=== PATIENT | female | born 1960 | race Caucasian/White ===

== ENCOUNTER 2022-08-31 11:29 | Inpatient (IN) ==
--- NOTE | 2022-07-05 10:35 | PAT Medication Instructions ---
Medication Instructions Date of Service July 05, 2022 Home Medications buspirone 7.5 mg tablet 7.5 mg PO BID diltiazem HCl 120 mg capsule,24 hr,extended release 120 mg PO QAM metformin 500 mg tablet 1,000 mg PO BID metoprolol succinate 50 mg tablet,extended release 24 hr 50 mg PO HS omega 5-ife-jjo-fish oil 1,000 mg (120 mg-180 mg) capsule (Fish Oil) 2 cap PO HS pantoprazole 40 mg tablet,delayed release 40 mg PO QAM paroxetine HCl 40 mg tablet 40 mg PO HS ropinirole 1 mg tablet 1 mg PO HS rosuvastatin 40 mg tablet 40 mg PO HS STOP taking 2 weeks before surgery omega 0-jxl-oxk-fish oil 1,000 mg (120 mg-180 mg) capsule (Fish Oil) 2 cap PO HS DO NOT take the morning of surgery metformin 500 mg tablet 1,000 mg PO BID Take morning of surgery With a small sip of water, OTHERWISE NOTHING TO EAT OR DRINK AFTER MIDNIGHT: buspirone 7.5 mg tablet 7.5 mg PO BID diltiazem HCl 120 mg capsule,24 hr,extended release 120 mg PO QAM pantoprazole 40 mg tablet,delayed release 40 mg PO QAM Take evening before surgery buspirone 7.5 mg tablet 7.5 mg PO BID metformin 500 mg tablet 1,000 mg PO BID metoprolol succinate 50 mg tablet,extended release 24 hr 50 mg PO HS paroxetine HCl 40 mg tablet 40 mg PO HS ropinirole 1 mg tablet 1 mg PO HS rosuvastatin 40 mg tablet 40 mg PO HS Other Notes If you have any questions please call us at [phone] or [phone] or [phone] or [phone]
--- NOTE | 2022-08-17 13:10 | Anesthesiology Consultation ---
Date of Service August 17, 2022 Assessment & Plan (1) Encounter for pre-operative examination: Plan - check BSG am DOS. - cardiology 01/05/22: will attempt to obtain most recent office note, current scanned document of that date is visit summary. Chart Review Chart Review: Pending: Refer to Additional Notes / Consult section and Patient seen in Pre Admission Testing Teaching & Discussion Pre-Anesthesia Teaching/Discussion Notes: Instructed NPO after midnight before surgery, except medications with 15 cc of water. Medication instructions provided according to the PAT guidelines. History Surgery Operation Date: 07/22/22 12:25 Proposed Procedures p L3-L4 Decomrpession and Fusion, L4-L5 Hardware Removal, Spinal Cord Monitoring - Wero Hull DO Operation Date: 08/31/22 12:25 Proposed Procedures p L3-L4 Decompression and Fusion, L4-L5 Hardware Removal, Spinal Cord Monitoring - Wero Hull DO Height/Weight Height: 5 ft 9 in Weight: 93.7 kg Allergies Allergy/AdvReac Type Severity Reaction Status Date / Time empagliflozin AdvReac Intermediate Gastrointestinal Verified 08/13/22 12:37 [From Jardiance] Upset Medications Home Medications Medication Instructions Recorded Confirmed Last Taken buspirone 7.5 mg tablet 7.5 mg PO BID 07/05/22 08/13/22 Unknown diltiazem HCl 120 mg capsule,24 120 mg PO QAM 07/05/22 08/13/22 Unknown hr,extended release metformin 500 mg tablet 1,000 mg PO BID 07/05/22 08/13/22 Unknown metoprolol succinate 50 mg 50 mg PO HS 07/05/22 08/13/22 Unknown tablet,extended release 24 hr omega 3-uzv-avn-fish oil 1,000 mg 2 cap PO HS 07/05/22 08/13/22 Unknown (120 mg-180 mg) capsule (Fish Oil) pantoprazole 40 mg tablet,delayed 40 mg PO QAM 07/05/22 08/13/22 Unknown release paroxetine HCl 40 mg tablet 40 mg PO HS 07/05/22 08/13/22 Unknown ropinirole 1 mg tablet 1 mg PO HS 07/05/22 08/13/22 Unknown rosuvastatin 40 mg tablet 40 mg PO HS 07/05/22 08/13/22 Unknown Past Medical History Medical History (Updated 08/17/22 @ 13:15 by Roxana Aguilar PA-C) Anxiety Depression Diabetes mellitus, type 2 NIDDM Fusion of spine lumbar GERD (gastroesophageal reflux disease) controlled, stable per pt History of COVID-19 Feb 25, 2022 > not hospitalized > mild Hyperlipidemia Hypertension controlled, stable per pt IBS (irritable bowel syndrome) Lumbar stenosis with neurogenic claudication Mild mitral regurgitation Mild tricuspid regurgitation Nausea and vomiting after administration of anesthetic agent has needed scop patch in past, states with recent procedures has received IV pre-dosing and has not had any recent issues Sleep apnea no device Patient denies h/o stroke, seizures, heart attack, heart failure, blood clots or blood transfusions. Exercise / Class Metabolic Activity III < 4 Walking/Shop/Light housework (denies chest discomfort or shortness of breath with usual activities) Past Family History Family History Sister Diabetes Brother Diabetes Past Surgical History Surgical History History of cardiac cath 03/04/17: normal epicardial coronary arteries History of carpal tunnel release left History of cholecystectomy History of colonoscopy History of esophagogastroduodenoscopy (EGD) History of partial hysterectomy History of tooth extraction Hx of inguinal hernia repair bilat Past Anesthesia History No Hx of Anesthesia Complications and No Family Hx of Anesthesia Complications History of PONV History of PONV (see above) and Hx of Motion Sickness Social History Smoking Status: Never smoker Do You Dip or Chew Tobacco: No Hx Alcohol Use: No Hx Substance Use: No substance use type: does not use Review of Systems Patient denies chest pain, shortness of breath, dyspnea on exertion, fever, chills, cough, wheezing, or palpitations. Physical Exam Vital Signs Vitals BP 117/76 P 81 TEMP 98.5 SP02 97% on RA RESP 17 Physical Full cervical extension range of motion without pain TMD 3.5 finger breadths Mallampati Score 3 Dentition: upper dentures, lower chipped teeth; denies loose teeth, implants or bridges Lungs: normal respiratory effort. Clear throughout to auscultation, no adventitious breath sounds Cardiac: regular rate and rhythm, no murmurs noted Carotid arteries: negative bruit bilat Lab Results Anesthesia Preop Results Results Anesthesia Widget: WBC 4.47 K/ul (4.8-10.8) L 08/17/22 Hgb 11.4 g/dl (12.0-16.0) L 08/17/22 Hct 35.5 % (34.1-44.9) 08/17/22 Plt 119 K/uL (130-400) L 08/17/22 Na 139 mmol/L (136-145) 08/17/22 K 4.1 mmol/L (3.5-5.1) 08/17/22 Cl 106 mmol/L (98-107) 08/17/22 CO2 27 mmol/L (21-32) 08/17/22 BUN 17 mg/dl (6-23) 08/17/22 Creat 0.93 mg/dl (0.6-1.2) 08/17/22 Glucose Level 160 mg/dl (70-99(Fasting)) H 08/17/22 PT 11.2 Seconds (9.0-12.0) 08/17/22 PTT 24.2 Seconds (21.0-31.0) 08/17/22 INR 1.1 (0.9-1.1) 08/17/22 HA1c 6.8 % (4.5-5.6) H 08/17/22 Urine Color Yellow 08/17/22 Urine Appearance Clear (Clear) 08/17/22 Urine pH 6.0 (4.5-7.5) 08/17/22 Urine Specific [place] 1.023 (1.000-1.030) 08/17/22 Urine Protein 2+ (Negative) H 08/17/22 Urine Glucose (UA) Negative (Negative) 08/17/22 Urine Ketones Negative (Negative) 08/17/22 Urine Blood Trace (Negative) H 08/17/22 Urine Nitrite Negative (Negative) 08/17/22 Urine Bilirubin Negative (Negative) 08/17/22 Urine Urobilinogen Negative (Negative) 08/17/22 Urine Leukocyte Esterase Negative (Negative) 08/17/22 Urine WBC (Auto) 1-5 /hpf (0-5) 08/17/22 Urine RBC (Auto) 0-4 /hpf (0-4) 08/17/22 Urine Hyaline Casts (Auto) 1-5 /lpf (0-5) 08/17/22 Urine Epithelial Cells (Auto) >30 /lpf (0-5) H 08/17/22 Urine Bacteria (Auto) Negative (Negative) 08/17/22 Blood Type O Positive 08/17/22 Antibody Screen NEGATIVE 08/17/22 Testing Electrocardiogram Date: 08/17/22 NSR, rate 78 bpm Chest X-Ray Date: 08/17/22 Cardiomediastinal and hilar silhouettes are within normal limits. No pneumothorax, pleural effusion, airspace consolidation or overt pulmonary edema. Mild linear subsegmental atelectasis versus scarring of the inferior segment lingula. Cholecystectomy. IMPRESSION: No acute process. Echocardiogram Date: 11/27/20 EF 65% Normal LV size and systolic function with no regional wall motion abnormalities Mild cLVH Mild mitral regurgitation Mild tricuspid regurgitation Cardiac Catheterization Date: 03/04/17 Left main: no angiographically evident disease LAD: less than 20% stenosis ostium first diagonal Cx: no angiographically evident disease RCA: no angiographically evident disease COVID-19 Risk Screen Screening Information COVID-19 Screen Date: 08/17/22 Exposure 21 Days Family/Household +COVID Last 21 Days: No Exposure 10 Days Any COVID Exposure Last 10 Days: No Symptoms Last 10 Days Experienced COVID Sx Last 10 Days: No + COVID 0-90 Days COVID + in Last 0-90 Days: No
[~2022-08-31 11:29] MED LIST: ACETAMINOPHEN 500 MG TAB PO SCH; CeleBREX 200 MG CAP PO SCH; GABAPENTIN 600 MG DOSE PO SCH; LR 15ML/HR IV SCH; ceFAZolin 2000MG 2,000 MG/15 ML SYR IV SCH
[2022-08-31] MEDS ORDERED: ROCURONIUM BROMIDE 10 MG/ML 5 ML VIAL IV ONE ×2 (11:55→16:21)
[2022-08-31 13:09] LABS: Fibrinogen 303 mg/dl (184-400)
[2022-08-31] MEDS ORDERED: HYDROmorphone INJ 2 MG/ML SYR/VIAL IV PRN (13:14)
[2022-08-31] MEDS ORDERED: ATROPINE SULFATE 0.1 MG/ML 10ML SYR IV PRN (13:14)
[2022-08-31] MEDS ORDERED: ePHEDrine sulfate 50 MG/ML AMP IV PRN (13:14)
[2022-08-31] MEDS ORDERED: ONDANSETRON INJ 2 MG/ML 2 ML VIAL IV PRN ×2 (13:14→17:46)
--- NOTE | 2022-08-31 13:50 | History & Physical Bridge Note ---
Date of Service August 31, 2022 History & Physical Bridge Note I have examined the patient, reviewed the History & Physical and in the interval since the performance of the History & Physical I have noted the following changes of clinical significance: no changes noted
--- NOTE | 2022-08-31 13:51 | History & Physical Report ---
Date of Service August 31, 2022 Assessment & Plan (1) Lumbar stenosis with neurogenic claudication: Plan: L3-L4 decompression and fusion, L4-L5 hardware removal History of Present Illness Chief Complaint: Back and leg pain Primary Care Provider: Lelia Hinds PA-C This is a 62-year-old female presents with chronic persistent back and leg pain after failing course of nonoperative care she is here for surgical invention. Allergies Allergy/AdvReac Type Severity Reaction Status Date / Time empagliflozin AdvReac Intermediate Gastrointestinal Verified 08/31/22 11:55 [From Jardiance] Upset Home Medications Medication Instructions Recorded Confirmed Type buspirone 7.5 mg tablet 7.5 mg PO BID 07/05/22 08/31/22 History diltiazem HCl 120 mg capsule,24 120 mg PO QAM 07/05/22 08/31/22 History hr,extended release metformin 500 mg tablet 1,000 mg PO BID 07/05/22 08/31/22 History metoprolol succinate 50 mg 50 mg PO HS 07/05/22 08/31/22 History tablet,extended release 24 hr omega 8-jwm-prl-fish oil 1,000 mg 2 cap PO HS 07/05/22 08/31/22 History (120 mg-180 mg) capsule (Fish Oil) pantoprazole 40 mg tablet,delayed 40 mg PO QAM 07/05/22 08/31/22 History release paroxetine HCl 40 mg tablet (Paxil) 40 mg PO HS 07/05/22 08/31/22 History ropinirole 1 mg tablet 1 mg PO HS 07/05/22 08/31/22 History rosuvastatin 40 mg tablet 40 mg PO HS 07/05/22 08/31/22 History dulaglutide 1.5 mg/0.5 mL 1.5 mg subcut WK 08/31/22 08/31/22 History subcutaneous pen injector (Trulicity) Past Med/Surg History Medical History Anxiety Depression Diabetes mellitus, type 2 NIDDM Fusion of spine lumbar GERD (gastroesophageal reflux disease) controlled, stable per pt History of COVID-19 Feb 25, 2022 > not hospitalized > mild Hyperlipidemia Hypertension controlled, stable per pt IBS (irritable bowel syndrome) Lumbar stenosis with neurogenic claudication Mild mitral regurgitation Mild tricuspid regurgitation Nausea and vomiting after administration of anesthetic agent has needed scop patch in past, states with recent procedures has received IV pre-dosing and has not had any recent issues Sleep apnea no device Stage 3 hepatic fibrosis pt sees Dr. London with [facility] Surgical History History of cardiac cath 03/04/17: normal epicardial coronary arteries History of carpal tunnel release left History of cholecystectomy History of colonoscopy History of esophagogastroduodenoscopy (EGD) History of partial hysterectomy History of tooth extraction Hx of inguinal hernia repair bilat Family History Sister Diabetes Brother Diabetes Social History Smoking Status: Never smoker Second Hand Exposure: No; Do You Dip or Chew Tobacco: No; Tobacco Cessation Education Requested by Patient: No Hx Alcohol Use: No Hx Substance Use: No Preferred Language: Syriac Underwriting Clerks Supervisor Required: No Beliefs That Will Affect Care: None Current Living Situation: Spouse Other Information That Helps Us Care for You: No Feels Safe at Home: Yes Safety Concerns: Feels Safe At This Time Assistive Devices: Denture - Upper and Glasses Physical Exam Physical Exam: Patient is alert and oriented Heart regular rhythm Lungs clear Results & Data Results & Data ([facility]) Vital Signs (Past 12 Hours) Vital Signs Temp Pulse Resp BP Pulse Ox O2 Del Method 08/31/22 12:00 36.9 C 77 19 117/65 97 Room Air
[2022-08-31] MEDS ORDERED: ceFAZolin 330 MG/ML 1 GM VIAL ONE (13:57)
[2022-08-31] MEDS ORDERED: BUPIVACAINE/EPINEPHRINE 0.5% MPF 1:200,000 30 ML VIAL ONE (13:58)
[2022-08-31] MEDS ORDERED: fentaNYL citrate 100 MCG/2 ML VIAL ONE (14:09)
[2022-08-31] MEDS ORDERED: MIDAZOLAM HCL 1 MG/ML 2ML VIAL ONE (14:09)
[2022-08-31] MEDS ORDERED: FLOSEAL HEMOSTATIC MATRIX 10ML TOP ONE (15:32)
--- NOTE | 2022-08-31 16:19 | Operative Report ---
Post Operative Report Pre & Post Diagnosis Operation Date: 07/22/22 12:25 <No data on this case meets the specified criteria> Operation Date: 08/31/22 13:05 Pre-Op Diagnosis: Lumbar Stenosis with Neurogenic Claudication Post-Op Diagnosis: Lumbar Stenosis with Neurogenic Claudication I identified the patient and participated in the time-out.: Yes Procedure Operation Date: 07/22/22 12:25 <No data on this case meets the specified criteria> Operation Date: 08/31/22 13:05 Actual Procedures #1 removal of posterior instrumentation L4-L5. #2 exploration of fusion L4-5 per #3 lumbar decompression bilateral medial facetectomies and foraminotomies L3-L4. #4 posterior spinal fusion L3-L4. #5 placement posterior instrumentation L3-L4 L4-5. #6 interbody fusion L3-L4. #7 placement of Spira 13 x 26 mm cage at L3-L4. #8 placement locally harvested morselized autograft in the posterior gutters. #9 placement of I factor combined V toss interbody space and posterior lateral gutters. Surgeon Wero Hull, DO Public Speaking Coach Janee Zepeda Estimated Blood Loss 350 Findings Consistent with Post-Op Diagnosis Specimens None Indications This is a 8-year-old female known to me the presents with above-mentioned diagnosis after failing course of nonoperative care is here for surgical inve ntion. Description of Procedure Patient was met with identified informed consent obtained. Patient was then taken to the operative suite underwent a patient placed in a prone position on the Dewey table top Jg frame. All bony prominences well-padded eyes inspected to ensure no external pressure placed upon the. This point the lumbar spine was prepped and draped in normal sterile fashion. Sharp dissection with the assistance of Bovie cautery was formed down to and exposing the lamina and transverse processes of L3 and instrumentation at L4-L5 bilaterally. Then proceeded move the hardware bilaterally explore the fusion mass noting it to be mature and intact. Then performed a complete laminectomy of L3 including bilateral medial facetectomies and foraminotomies addressing severe spinal stenosis. Pedicle screws were then placed at L3-L4-L5 bilaterally with assistance of fluoroscopy and the properly sized hay placed. By way of t ransforaminal approach complete discectomy of L3-L4 was performed endplates curetted to subcortical bleeding bone and a 13 x 26 mm spiral cage with I factor tapped in position. The rods were then locked in final position bilaterally. The transverse processes of L3-L4 burred to subcortical bleeding bone. I factor bone of the test and locally harvested morselized autograft was placed in the posterior lateral gutters. 15 round CATHERINE drain inserted. The incision was then closed with 1 Vicryl the fascia 2-0 Vicryl subcutaneously and 4 Monocryl for final skin closure. Steri-Strip sterile dressings placed. Patient waken taken to PACU in stable condition. Please note spinal cord monitoring was utilized at the procedure no changes noted. Lastly Janee Zepeda was present on the entire surgery and while the patient positioning complex portions of the surgery and final skin closure. I attest to the content of the Intraoperative Record and any orders documented therein. Any exceptions are noted below.
[2022-08-31] MEDS ORDERED: LIDOCAINE 2% MPF LOCAL 5 ML VIAL INFIL ONE (16:21)
[2022-08-31] MEDS ORDERED: NEOSTIGMINE METHYLSULFATE 1 MG/ML 10ML VIAL ONE (16:21)
[2022-08-31] MEDS ORDERED: DEXAMETHASONE SOD INJ 4 MG/ML VIAL ONE (16:21)
[2022-08-31] MEDS ORDERED: ONDANSETRON INJ 2 MG/ML 2 ML VIAL ONE (16:21)
[2022-08-31] MEDS ORDERED: GLYCOPYRROLATE 0.2 MG/ML VIAL ONE (16:21)
[2022-08-31] MEDS ORDERED: PROPOFOL IV EMULSION 10 MG/ML 20 ML VIAL IV ONE ×3 (16:21)
[2022-08-31] MEDS: fentaNYL citrate 100 MCG/2 ML VIAL IV PRN ×2 (16:56→17:01)
--- NOTE | 2022-08-31 17:00 | Fluoroscopy Report ---
FL lumbar spine 2-3V CLINICAL HISTORY: L3-4 DFI/L4-5 HR COMPARISON STUDY: Lumbar spine radiographs January 21, 2022 and lumbar spine MRI December 14, 2021. FLUOROSCOPY TIME: 11 seconds. EXPOSURE DOSE: 9.24 mGy FLUOROSCOPIC IMAGES: 2 FINDINGS: Previous L4-L5 and L5-S1 discectomies are noted. Previous hardware was removed. Interval L3 -L4 discectomy with interbody spacer placement is noted. There is a posterior decompression with bila teral pedicle screw fusion from L3 through L5. IMPRESSION: Interval L3-L4 discectomy and L3-L5 bilateral pedicle screw fusion. ACT 112: Negative or not required by law. Electronically signed by: Rigo Thomas M.D. 08/31/2022 4:59 PM
--- NOTE | 2022-08-31 17:11 | Anesthesiology Progress Note ---
Date of Service August 31, 2022 Anesthesia Post Procedure Vital Signs Vital Signs: Temp Pulse Resp BP Pulse Ox O2 Del Method O2 Flow Rate 08/31/22 17:05 75 13 109/54 L 93 Nasal Cannula 3 08/31/22 16:55 82 17 111/57 L 95 Nasal Cannula 3 08/31/22 16:45 83 19 116/56 L 95 Nasal Cannula 3 08/31/22 16:36 36.5 C 87 12 115/56 L 95 Nasal Cannula 3 08/31/22 12:00 36.9 C 77 19 117/65 97 Room Air Pain Intensity Lower Back: Pain Intensity: 6 Transfer of Care Handoff Completed per policy Notes Mental Status: alert / awake / arousable Patient Amnestic to Procedure: Yes Nausea / Vomiting: adequately controlled Pain: adequately controlled Airway Patency, RR, SpO2: stable & adequate BP & HR: stable & adequate Hydration State: stable & adequate Anesthetic Complications: no major complications apparent
[2022-08-31] MEDS ORDERED: DO NOT ADMINISTER PNEUMOCOCCAL VACCINE PRN (17:46)
[2022-08-31] MEDS ORDERED: PHARMACY GLYCEMIC MGMT CONSULT PRN (17:46)
[2022-08-31] MEDS ORDERED: SOD PHOSPHATE/SOD BIPHOSPHATE ENEMA 132 ML BTL PR PRN (17:46)
[2022-08-31] MEDS ORDERED: traMADol HCL 50 MG TABLET PO PRN (17:46)
[2022-08-31] MEDS ORDERED: ONDANSETRON 4 MG OD TAB PO PRN (17:46)
[2022-08-31] MEDS ORDERED: PROMETHAZINE HCL 12.5 MG in SODIUM CHLORIDE 0.9% 50 ML IV PRN (17:46)
[2022-08-31] MEDS ORDERED: METOCLOPRAMIDE HCL INJ 5 MG/ML 2 ML VIAL IV PRN (17:46)
[2022-08-31] MEDS ORDERED: bisacodyL 10 MG SUPP PR PRN (17:46)
[2022-08-31] MEDS ORDERED: ALUMINUM/MAGNESIUM SUSP 30 ML UDC PO PRN (17:46)
[2022-08-31] MEDS ORDERED: ACETAMINOPHEN 1,000 MG/100 ML VIAL IV PRN (17:46)
[2022-08-31] MEDS ORDERED: FAMOTIDINE 20 MG TAB PO PRN (17:46)
[2022-08-31] MEDS ORDERED: MAGNESIUM HYDROXIDE SUSP 30 ML UDC PO PRN (17:46)
[2022-08-31] MEDS ORDERED: LORazepam 2 MG/1 ML VIAL IV PRN (17:46)
[2022-08-31] MEDS ORDERED: HYDROmorphone INJ 0.5 MG/0.5 ML SYR IV PRN (17:46)
[2022-08-31] MEDS ORDERED: HYDROmorphone INJ 1 MG/ML SYRINGE IV PRN (17:46)
[2022-08-31] MEDS ORDERED: diphenhydrAMINE Capsule 25 MG CAP PO PRN (17:46)
[2022-08-31] MEDS ORDERED: DO NOT ADMINISTER FLU VACCINE PRN (17:46)
[2022-08-31] MEDS ORDERED: hydrOXYzine HCl 25 MG TAB PO PRN (17:46)
[2022-08-31] MEDS ORDERED: ACETAMINOPHEN 500 MG TAB PO PRN (17:46)
[2022-08-31] MEDS ORDERED: NALOXONE HCL 0.4 MG/1 ML VIAL/CARP IV PRN (17:46)
[2022-08-31] MEDS ORDERED: LORazepam 0.5 MG TAB PO PRN (17:46)
[2022-08-31] MEDS ORDERED: HYDROmorphone INJ 1 MG/ML SYRINGE ONE (17:59)
[2022-08-31] MEDS ORDERED: GLUCOSE 10 TAB/TUBE PO PRN (19:45)
[2022-08-31] MEDS ORDERED: GLUCOSE 40% GEL 15 GM TUBE PO PRN (19:45)
[2022-08-31] MEDS ORDERED: GLUCAGON FOR INJ 1 MG VIAL IM PRN (19:45)
[2022-08-31] MEDS ORDERED: CARBOHYDRATES FOR HYPOGLYCEMIA PO PRN (19:45)
[2022-08-31] MEDS ORDERED: DEXTROSE 50% 50 ML SYRINGE IV PRN (19:45)
[2022-08-31] MEDS: oxyCODONE HCL IR 5 MG TAB (IMMEDIATE RELEASE) PO PRN (19:56)
[2022-08-31] MEDS: LACTATED RINGER'S 1,000 ML IV SCH (19:57)
[2022-08-31] MEDS ORDERED: LANTUS PER UNIT CHARGE SQ SCH (20:00)
[2022-08-31] MEDS: INSULIN ASPART PER UNIT SC SCH (20:52)
[2022-08-31] MEDS: rOPINIRole HCL 1 MG TABLET PO SCH (21:26)
[2022-08-31] MEDS: DOCUSATE SODIUM/SENNA 50/8.6MG TAB PO SCH (21:26)
[2022-08-31] MEDS: METOPROLOL SUCC 50MG EXT REL TAB PO SCH (21:26)
[2022-08-31] MEDS: busPIRone 7.5 MG TAB PO SCH (21:26)
[2022-08-31] MEDS: PARoxetine HCL 20 MG TAB PO SCH (21:27)
[2022-08-31] MEDS: ROSUVASTATIN CALCIUM 20 MG TAB PO SCH (21:27)
[2022-08-31] MEDS: ceFAZolin 2000MG 2,000 MG/15 ML SYR IV SCH (22:42)
[2022-09-01] MEDS: oxyCODONE HCL IR 5 MG TAB (IMMEDIATE RELEASE) PO PRN ×5 (02:38→19:16)
[2022-09-01] MEDS: LACTATED RINGER'S 1,000 ML IV SCH (03:18)
[2022-09-01] MEDS: POLYETHYLENE (MIRALAX) 17 GM PACK PO SCH ×4 (05:25→23:19)
[2022-09-01] MEDS: ceFAZolin 2000MG 2,000 MG/15 ML SYR IV SCH (05:51)
[2022-09-01 06:22] LABS: Basophils # (auto) 0.01 K/uL (0-0.2); Basophils % (auto) 0.1 %; Hemoglobin 9.9 g/dl (12.0-16.0); Immature Granulocytes # (auto) 0.04 K/uL (0.01-0.20); Immature Granulocytes % (auto) 0.6 %; Lymphocytes # (auto) 1.36 K/uL (1.2-3.4); Lymphocytes % (auto) 18.7 %; Mean Corpuscular Hemoglobin 28.1 pg (25.0-34.0); Mean Corpuscular Hgb Conc 31.9 g/dL (32.0-36.0); Mean Corpuscular Volume 88.1 fL (80.0-100.0); Mean Platelet Volume 9.9 fL (9.4-12.4); Monocytes # (auto) 0.55 K/uL (0.11-0.59); Monocytes % (auto) 7.6 %; Neutrophils # (auto) 5.31 K/uL (1.40-6.50); Platelet Count 135 K/uL (130-400); RDW Coefficient of Variation 14.9 % (11.5-14.5); RDW Standard Deviation 48.1 fL (36.4-46.3); Red Blood Count 3.52 M/uL (4.20-5.40); White Blood Count 7.27 K/ul (4.8-10.8)
[2022-09-01 06:36] LABS: BUN Creatinine Ratio 13.6 (10-20); Calcium 9.1 mg/dl (8.5-10.1); Creatinine Clr Calc Pharmacy 56.9 ml/min; Est GFR (African American) 54.1 ml/min; Est GFR (Non-African American) 46.7 ml/min; Potassium 4.2 mmol/L (3.5-5.1)
[2022-09-01] MEDS: dilTIAZem HCL 120 MG CAPCR PO SCH (07:46)
[2022-09-01] MEDS: PANTOprazole 40 MG TAB PO SCH (07:46)
[2022-09-01] MEDS: busPIRone 7.5 MG TAB PO SCH ×2 (07:47→21:02)
[2022-09-01] MEDS: dexAMETHasone 6 MG in SYRINGE 0 ML IV SCH (07:47)
--- NOTE | 2022-09-01 08:17 | Consultation Report ---
DATE OF CONSULTATION: 09/01/2022. CHIEF COMPLAINT: Status post back surgery. HISTORY OF PRESENT ILLNESS: This is a 62-year-old female with past medical history significant for diabetes, hypertriglyceridemia, triglycerides as high as 1200; Prinzmetal angina, status post cardiac catheterization, which was negative for coronary artery disease in 2017; history of palpitations, improved with AV chivo blockers; fatty infiltration of the liver, history of iron deficiency anemia, stage III fibrosis of the liver, untreated sleep apnea due to severe claustrophobia, status post back surgery, tolerated the procedure okay. She has some back pain. Denies any chest pain. No shortness of breath. No headache. No blurred visions. No runny nose. No nausea. No abdominal pain. Resting comfortably and hemodynamically stable. ALLERGIES: JARDIANCE. PAST MEDICAL HISTORY: As mentioned above. PAST SURGICAL HISTORY: Cholecystectomy, partial hysterectomy, and hernia repair. MEDICATIONS: The patient is on buspirone 7.5 mg p.o. b.i.d., diltiazem 120 mg p.o. a.m., Trulicity 1.5 mg subcutaneous weekly, metformin 1000 mg p.o. b.i.d., metoprolol succinate 50 mg p.o. at bedtime, omega fish oil 2 capsules p.o. at bedtime, Protonix 40 mg p.o. a.m., Paroxetine 40 mg p.o. at bedtime, ropinirole 1 mg p.o. at bedtime, and lovastatin 40 mg p.o. at bedtime. FAMILY HISTORY: Significant for heart disease. SOCIAL HISTORY: Denies any smoking or any alcohol use. REVIEW OF SYSTEMS: As per HPI. Rest of the review of systems is negative. PHYSICAL EXAMINATION: GENERAL: The patient is obese, not in acute distress. VITAL SIGNS: Temperature 36.9, pulse 84, respiratory rate 16, blood pressure 104/67, and oxygen saturation 94% on room air. HEENT: Extraocular muscles intact. Head is atraumatic. NECK: No JVD. No neck masses seen. CARDIOVASCULAR: S1 and S2 heard. Regular rate and rhythm. No murmur. No gallop. RESPIRATORY SYSTEM: Normal AP diameter. No accessory muscle use. No wheezing. No crackles. ABDOMEN: Soft, bowel sounds present, and nontender. No distention. CENTRAL NERVOUS SYSTEM: Alert and oriented. Nonfocal. EXTREMITIES: No edema. No erythema. MUSCULOSKELETAL: Status post back surgery. Dressings are dry and intact. ASSESSMENT AND PLAN: This is a 62-year-old female, status post back surgery. 1. Back surgery, management as per orthopedics. PT, OT, and disposition as per orthopedics. 2. Diabetes. Holding home medication of metformin and Trulicity and placed on insulin sliding scale. Follow the blood sugars. 3. History of tachycardia, on metoprolol and diltiazem. 4. History of hyperlipidemia, on statin. 5. Gastroesophageal reflux disease, on omeprazole. 6. Deep venous thrombosis prophylaxis and disposition as per orthopedics. Job ID: [id number] MTDD
[2022-09-01] MEDS: INSULIN ASPART PER UNIT SC SCH ×4 (08:46→21:03)
[2022-09-01] MEDS ORDERED: LANTUS PER UNIT CHARGE SQ STA (09:45)
--- NOTE | 2022-09-01 10:27 | Hospitalist Progress Note ---
Date of Service September 01, 2022 Assessment & Plan (1) Lumbar stenosis with neurogenic claudication: (2) Diabetes mellitus, type 2: (3) Hypertension: Plan: Lumbar stenosis with neurogenic claudication Actual Procedures #1 removal of posterior instrumentation L4-L5. #2 exploration of fusion L4-5 per #3 lumbar decompression bilateral medial facetectomies and foraminotomies L3-L4. #4 posterior spinal fusion L3-L4. #5 placement posterior instrumentation L3-L4 L4-5. #6 interbody fusion L3-L4. #7 placement of Spira 13 x 26 mm cage at L3-L4. #8 placement locally harvested morselized autograft in the posterior gutters. #9 placement of I factor combined V toss interbody space and posterior lateral gutters. POD # [address] Hull EBBenjamín 350ml tolerated procedure well pain/wound management per ortho activity and therapy as prescribed by ortho encourage incentive spirometry Acute blood loss anemia in setting of surgery likely dilutional component as well H&H 9.9 and 31.0 preop hemoglobin was 11.4 Continue to monitor, hemodynamically stable T2DM Hold metformin, Trulicity Lantus/NovoLog per protocol Glycemic pharmacy on board, appreciate their management A1C 6.8 ON 08/16/23 Expect some hyperglycemia secondary to steroid HTN continue metoprolol and diltizem with parameters BP on lower side this a.m. CHRISTIANO cr 1.25 this a.m. pre op 0.93 will continue IVF for additonal 1 L follow bmp in A.M Depression with anxiety Mood stable Continue BuSpar and Paxil HLD Continue statin DVT prophylaxis: SCDs Dispo: Per primary PCP: Lelia Hinds FULL CODE Pt was see and examined in collaboration with Dr. Toure, please see addendum This note does not reflect a billable service as consultation was done after 00:00 on 09/01/22 Admission and Anticipated Discharge Date Admission Date: August 31, 2022 Supervising Physician Co-Signing Physician Notes Attending Addendum: care coordinated with JASSON Verduzco please refer to her notes for full details, I agree with her notes patient seen and examined, records reviewed by myself as well on exam, patient seen resting in bed, comfortable denies back pain, no leg pain, weakness, numbness no chest pain, dyspnea, palpitations, dizziness no other symptoms ASSESSMENT AND PLAN agree with diagnoses and plan of care as per JASSON Alfred's notes Noble Haider MD Subjective Pt was seen and examined in room 317-1. Follow up lumbar surgery. Overall feels well. Tolerated breakfast. Sitting in bedside chair. Denies f/c/s, chest pain, sob, n/v/d. Gill cath in place to be removed. Review of Systems Review of Systems: All systems reviewed & are unremarkable except as noted in HPI & below Physical Exam Physical Exam: Gen: WD/WN, sitting in bedside chair, NAD, A&O x3 HEENT: Normocephalic, atraumatic, conjunctivae moist, sclerae anicteric, mucous membranes moist. Lung: Clear to Auscultation bilaterally, no wheezes/rales/rhonchi Heart: Regular rate, regular rhythm, no murmurs, rubs, or gallops Abdomen: Soft, NT, ND +BS x 4 Extremities: No edema, lumbar dressing CDI, aline drain with sersang drainage Skin: Warm, no rash, negative turgor. Results & Data Results & Data ([facility]) Vital Signs (Past 12 Hours) Vital Signs Temp Pulse Resp BP BP Pulse Ox O2 Del Method 09/01/22 08:00 Room Air 09/01/22 07:16 36.6 C 77 16 105/66 94 Room Air 09/01/22 03:53 36.9 C 84 16 104/67 94 Room Air 08/31/22 23:30 Room Air 08/31/22 23:37 36.4 C L 89 14 96/59 L 94 Room Air 08/31/22 22:46 36.4 C L 95 H 16 91/55 L 88/48 L 95 Nasal Cannula O2 Flow Rate 09/01/22 08:00 09/01/22 07:16 09/01/22 03:53 08/31/22 23:30 08/31/22 23:37 08/31/22 22:46 1 Laboratory Results Short CBC 09/01/22 Range/Units 05:53 WBC 7.27 (4.8-10.8) K/ul Hgb 9.9 L (12.0-16.0) g/dl Hct 31.0 L (37.0-47.0) % Plt Count 135 (130-400) K/uL BMP 09/01/22 05:53 Sodium 137 Potassium 4.2 Chloride 106 Carbon Dioxide 23 BUN 17 Creatinine 1.25 H Glucose 187 H Calcium 9.1
[2022-09-01] MEDS ORDERED: LACTATED RINGER'S 1,000 ML IV SCH (10:30)
--- NOTE | 2022-09-01 12:03 | Orthopedic Progress Note ---
Date of Service September 01, 2022 Assessment & Plan (1) Lumbar stenosis with neurogenic claudication: Plan: This time we will continue physical therapy monitor CATHERINE operatively discharge home next day or so. Admission and Anticipated Discharge Date Admission Date: August 31, 2022 Subjective Patient's back pain controlled leg pain markedly improved Physical Exam Physical Exam: Patient is in the chair at the bedside. She is comfortable. Is constricted testing. Results & Data ([facility]) Vital Signs (Past 12 Hours) Vital Signs Temp Pulse Resp BP BP Pulse Ox O2 Del Method 09/01/22 11:25 37.1 C 85 16 102/64 96 Room Air 09/01/22 08:00 Room Air 09/01/22 07:16 36.6 C 77 16 105/66 94 Room Air 09/01/22 03:53 36.9 C 84 16 104/67 94 Room Air
--- NOTE | 2022-09-01 13:16 | Pharmacy Report ---
Pharmacy Glycemic Short Note 2 - Date of Service September 01, 2022 - Glycemic Short BSG Results (Last 24 hours): 08/31/22 08/31/22 09/01/22 16:38 20:33 05:53 Glucose 187 H POC Glucose 144 H 186 H 09/01/22 09/01/22 08:07 12:02 Glucose POC Glucose 150 H 207 H OUTPATIENT ANTIDIABETIC REGIMEN: * Trulicity 1.5 mg weekly * Metformin 1000 mg PO BID ASSESSMENT: * 62 y/o F admitted for spinal surgery. Patient with history of Type 2 diabetes managed at home on Trulicity and Metformin. These are on hold for now. * Patient received Dexamethasone 8 mg IV x1 during surgery yesterday and Dex IV 6 mg daily is continued ongoing. * BSG trended up to 186 mg/dl last night. Lantus 15 units given last night based on wt and stress of 2. * Going forward, will order basal insulin in the AM to be given with the IV Dex. 10 units of basal Lantus given this morning. Will re-assess dose tomorrow. * Novolog was started last night based on wt and stress of 2. PLAN FOR INPATIENT GLYCEMIC CONTROL: * Hold outpatient oral diabetes medications * Basal insulin * Lantus 15 units SQ last night; 10 units SQ this AM. Re-assess tomorrow AM. * Bolus insulin * NovoLog per scale ACHS or Q6hrs while NPO * Goal Range: Low 110 mg/dL - High 140 mg/dL * Correction Factor: 25 mg/dL/unit * Nutritional / Prandial insulin per carb ratio of 1 unit per 8 grams CHO consumed
[2022-09-01] MEDS: METOPROLOL SUCC 50MG EXT REL TAB PO SCH (20:57)
[2022-09-01] MEDS: ROSUVASTATIN CALCIUM 20 MG TAB PO SCH (21:01)
[2022-09-01] MEDS: rOPINIRole HCL 1 MG TABLET PO SCH (21:02)
[2022-09-01] MEDS: PARoxetine HCL 20 MG TAB PO SCH (21:02)
[2022-09-01] MEDS: DOCUSATE SODIUM/SENNA 50/8.6MG TAB PO SCH (21:05)
[2022-09-02] MEDS: POLYETHYLENE (MIRALAX) 17 GM PACK PO SCH (03:14)
[2022-09-02] MEDS: oxyCODONE HCL IR 5 MG TAB (IMMEDIATE RELEASE) PO PRN ×3 (03:19→11:52)
[2022-09-02 06:33] LABS: Hematocrit (blood only) 28.3 % (37.0-47.0); Mean Corpuscular Hemoglobin 28.6 pg (25.0-34.0); Mean Corpuscular Hgb Conc 31.8 g/dL (32.0-36.0); Mean Corpuscular Volume 89.8 fL (80.0-100.0); Mean Platelet Volume 9.7 fL (9.4-12.4); Platelet Count 128 K/uL (130-400); RDW Coefficient of Variation 15.2 % (11.5-14.5); RDW Standard Deviation 49.3 fL (36.4-46.3); Red Blood Count 3.15 M/uL (4.20-5.40); White Blood Count 8.83 K/ul (4.8-10.8)
[2022-09-02 06:34] LABS: BUN Creatinine Ratio 19.8 (10-20); Calcium 8.4 mg/dl (8.5-10.1); Creatinine Clr Calc Pharmacy 67.1 ml/min; Est GFR (African American) 66.1 ml/min; Potassium 4.4 mmol/L (3.5-5.1)
[2022-09-02] MEDS: busPIRone 7.5 MG TAB PO SCH (07:44)
[2022-09-02] MEDS: dexAMETHasone 6 MG in SYRINGE 0 ML IV SCH (07:44)
[2022-09-02] MEDS: PANTOprazole 40 MG TAB PO SCH (07:45)
[2022-09-02] MEDS: dilTIAZem HCL 120 MG CAPCR PO SCH (07:45)
[2022-09-02] MEDS ORDERED: LANTUS PER UNIT CHARGE SQ SCH (09:00)
[2022-09-02] MEDS: INSULIN ASPART PER UNIT SC SCH (09:16)
--- NOTE | 2022-09-02 10:39 | Discharge Summary ---
Date of Service September 02, 2022 Admission HPI Per Admitting Provider This is a 62-year-old female presents with chronic persistent back and leg pain after failing course of nonoperative care she is here for surgical invention. Principal Diagnosis Lumbar spinal stenosis with radiculopathy Discharge Data Allergies Allergy/AdvReac Type Severity Reaction Status Date / Time empagliflozin AdvReac Intermediate Gastrointestinal Verified 08/31/22 11:55 [From Jardiance] Upset Consultations 08/31/22 17:46 Consult Hospitalist Routine Procedures Performed Operation Date: 07/22/22 12:25 <No data on this case meets the specified criteria> Operation Date: 08/31/22 13:05 Actual Procedures p L3-L4 Decompression and Fusion, Spinal Cord Monitoring(Not Applicable) - Wero Hull DO s L4-L5 Hardware Removal(Not Applicable) - Wero Hull DO Ordered Studies 08/31/22 13:05 FL lumbar spine 2-3V Routine Hospital Course (1) Lumbar stenosis with neurogenic claudication: Patient underwent lumbar decompression fusion tolerated obtain orthopedic for postoperative postop and when she was up and ambulating. Progress postop day #2. Excellent strength testing. CATHERINE drain decreasing probably. Simply discharged home. Discharge orders instructions found in chart for review. Total Time Total Time Spent Total Time Spent (In Minutes): 20 minutes Discharge Plan Discharge Items Patient Disposition: Home - Self-Care Reason For Visit: Spinal Stenosis, Lumbar Region with Neurogenic Discharge Diagnosis: Lumbar stenosis with radiculopathy Activity: As commented below Non-emergency contact: Primary Care Provider Call non-emergency contact if: you have any medication questions Follow-up/Referrals: Lelia Hinds PA-C [Primary Care Provider] - Diet: Regular Addtl Attending Provider Instructions: ACTIVITY RECOMMENDATIONS: SELF CARE INSTRUCTIONS AFTER THORACIC/LUMBAR FUSIONS 1. You may walk to your tolerance. It is good exercise for your legs and back. Expect some back and intermittent leg aches and pains. 2. You may perform "counter-top" level activities (make a sandwich, lisy with a project, etc.). 3. No bending or lifting of more than 10 pounds or back twisting of any nature (roll like a log when turning in bed). 4. You may ride in a car for 20-30 minutes at a time. No driving until after your first visit with your doctor. 5. Frequent changes of position and restricting sitting to 30 minutes at a time will help limit the amount of back spasms and stiffness you may experience. 6. You may discontinue the use of ambulatory aids (cane, crutches, etc.) once your strength and confidence allow. 7. You may transport operations inspector the shower and let water strike your incision when you arrive home at least once daily. Do not take a tub bath, sit in a hot tub or go into a swimming pool until after your first recheck in the office. SPECIAL CARE INSTRUCTIONS: VERY IMPORTANT TO READ AND REVIEW A. Your surgical incision has been closed with a cosmetic suture under the skin that will dissolve in about 6 weeks. In 14 days, you can use a pair of clean scissors and cut the suture that is left outside of the skin at the ends of your incision. 1. The small skin tapes can be removed 7 days after surgery if they have not fallen off by that point. 2. You may keep the wound open to air as much as possible to promote healing after post-op day number 5 unless told otherwise by your doctor. 3. If you think the wound looks like it is becoming infected (redness or worsening drainage) and/or you are experiencing fever, chill or worsening back pain and muscle spasms, contact the office so that we may evaluate you as soon as possible. B. Complications are uncommon, but please contact us if you have any signs or symptoms of: 1. wound infection (fever higher than 102.5 degrees F, redness, separation of wound, drainage, or increasing pain from the incision) 2. blood clots in legs (pain, swelling, redness and warmth in legs) 3. urinary tract infection (fever higher than 102.5 degrees F, burning upon urination or increased frequency of urination) 4. nerve problems (inability to walk on your toes or heels, numbness, loss of bowel or bladder control) 5. any other symptoms that concern you C. Please call the office at if you have any concerns or questions about your operation or recovery. D. No smoking! Smoking drastically decreases the chance of a solid fusion. E. Do not take any anti-inflammatory medications (Indocin, Advil, Motrin, Aspirin, Naprosyn, etc.) as these may inhibit the chance of a solid fusion. Tylenol is okay to take for pain. MANAGING PAIN AFTER SPINAL SURGERY 1. Narcotic medication is intended for short-term use and will be provided for surgical pain. Surgical pain usually lasts for a period of 4-6 weeks. Narcotic medication includes Percocet, Vicodin, Darvocet, Tylenol #3 or Lortab. 2. Longer-term pain is more appropriately treated with non-narcotic medication such as Tylenol ES. 3. Muscle spasm is not appropriately treated with narcotics. Muscle relaxers such as Soma, Flexeril or Skelaxin can be used along with Tylenol ES. 4. Remember that we all live with some "aches and pains". This is not unusual or uncommon after an injury or as we get older. a. Back pain is expected and may include muscle spasms for 4 to 6 weeks after surgery. The pain should gradually improve. If the pain worsens for no apparent reason, please contact the office. b. Intermittent leg pain may also be experienced and should not be concerned about unless it worsens for no apparent reason. If so, please contact the office. 5. We will provide appropriate medication within the normal guidelines of their prescribed use. We will also be very cautious and aware of potential abuse and extended duration of patients' medication needs. a. Pain medications are for your comfort and to assist with sleep and rest so that the tissue can heal. They are not provided in order to return to normal activity and should not be used through the day. To do so or worsening pain at night can result from ongoing tissue damage and development of tolerance to the prescribed medicine. 6. Please allow 2-3 days to process refills. Prescriptions will not be mailed but must be picked up at the office. FOLLOW UP VISIT: Keep your scheduled follow-up appointment. Any questions, please call the office at . Pending Studies at Discharge: No Stand-Alone Forms: My [employer], Smoking Cessation Medications and DC Order Prescriptions: New tramadol 50 mg tablet 50 mg PO Q6H PRN (Reason: pain, moderate) Qty: 30 0RF oxycodone 5 mg tablet 5 mg PO Q6H PRN (Reason: pain, severe) Qty: 30 0RF Continued metformin 500 mg Tablet 1,000 mg PO BID ropinirole 1 mg Tablet 1 mg PO HS Rx Instructions: administer 1-3 hours before bedtime metoprolol succinate 50 mg Tablet Extended Release 24 Hr 50 mg PO HS diltiazem HCl 120 mg Capsule,Extended Release 24 Hr 120 mg PO QAM pantoprazole 40 mg Tablet,Delayed Release (Dr/Ec) 40 mg PO QAM buspirone 7.5 mg Tablet 7.5 mg PO BID paroxetine HCl [Paxil] 40 mg Tablet 40 mg PO HS rosuvastatin 40 mg Tablet 40 mg PO HS omega 2-kmr-knv-fish oil [Fish Oil] 1,000 mg (120 mg-180 mg) Capsule 2 cap PO HS Trulicity 1.5 mg/0.5 mL Pen Injector 1.5 mg SUBCUT WK Rx Instructions: Discharge Orders: Discharge Order (Routine); Ordered 09/02/22 Ordered By: Wero Hull Admission Data Admit Date/Time: 08/31/22 16:22 Attending Provider: Wero Hull Admit Provider: Wero Hull Primary Care Provider: Lelia Hinds Other Providers: Rani Karimi ; Noble Haider ; Kim Strauss ; Oly Barajas
--- NOTE | 2022-09-02 12:10 | Hospitalist Progress Note ---
Date of Service September 02, 2022 Assessment & Plan (1) Lumbar stenosis with neurogenic claudication: (2) Diabetes mellitus, type 2: (3) Hypertension: Plan: Lumbar stenosis with neurogenic claudication Actual Procedures #1 removal of posterior instrumentation L4-L5. #2 exploration of fusion L4-5 per #3 lumbar decompression bilateral medial facetectomies and foraminotomies L3-L4. #4 posterior spinal fusion L3-L4. #5 placement posterior instrumentation L3-L4 L4-5. #6 interbody fusion L3-L4. #7 placement of Spira 13 x 26 mm cage at L3-L4. #8 placement locally harvested morselized autograft in the posterior gutters. #9 placement of I factor combined V toss interbody space and posterior lateral gutters. POD # [address] Hull EBL 350ml tolerated procedure well pain/wound management per ortho activity and therapy as prescribed by ortho encourage incentive spirometry Acute blood loss anemia in setting of surgery likely dilutional component as well H&H 9.9 -> 9 today. Preop hemoglobin was 11.4 Continue to monitor, hemodynamically stable T2DM Hold metformin, Trulicity Lantus/NovoLog per protocol Glycemic pharmacy on board, appreciate their management A1C 6.8 ON 08/16/23 Expect some hyperglycemia secondary to steroid HTN continue metoprolol and Diltazem with parameters BP on lower side this a.m. CHRISTIANO -resolved cr 1.25 -> 1.06 pre op 0.93 Depression with anxiety Mood stable Continue BuSpar and Paxil HLD Continue statin DVT prophylaxis: SCDs Dispo: Per primary PCP: Lelia Hinds FULL CODE Pt was see and examined in collaboration with Dr. Haider, please see addendum A total of 15 minutes were spent with greater than 50% of that time face to face with the patient, personally reviewing all current laboratories, imaging studies, past medication reconciliation, outpatient chart review, and discussion with specialists to collaborate care for the patient with attending and utilization of translation services. Please see attending documentation for corrections and/or additions. Admission and Anticipated Discharge Date Admission Date: August 31, 2022 Subjective Seen in 317 in follow-up after spinal surgery. Feeling well today. Sitting at bedside with minimal incisional site pain. Denies any pain or numbness in lower extremities. Perspiring with therapy without issue. Denies any fever, chills, chest pain or lightheadedness. Passing flatus but no postop bowel movement yet. Review of Systems Review of Systems: At least ten systems reviewed and negative except as noted in the HPI. Physical Exam Physical Exam: Gen: WD/WN, NAD, sitting on side of bed, A&Ox3 HEENT: Normocephalic, atraumatic, conjunctivae moist, sclerae anicteric, mucous membranes moist Lung: Clear to Auscultation bilaterally, no wheezes/rales/rhonchi Heart: Regular rate, regular rhythm, no murmurs, rubs, or gallops Abdomen: Soft, NT, ND +BS x 4 Extremities: +spinal dressing c/d/i. CATHERINE drain visualized. No edema Skin: Warm, no rash Results & Data Results & Data ([facility]) Vital Signs (Past 12 Hours) Vital Signs Temp Pulse Pulse Resp BP BP Pulse Ox 09/02/22 11:32 36.7 C 82 76 18 104/67 114/70 93 09/02/22 07:14 36.7 C 76 18 114/70 93 O2 Del Method 09/02/22 11:32 09/02/22 07:14 Room Air Laboratory Results Short CBC 09/02/22 Range/Units 05:53 WBC 8.83 (4.8-10.8) K/ul Hgb 9.0 L (12.0-16.0) g/dl Hct 28.3 L (37.0-47.0) % Plt Count 128 L (130-400) K/uL BMP 09/02/22 05:53 Sodium 143 Potassium 4.4 Chloride 113 H Carbon Dioxide 26 BUN 21 Creatinine 1.06 Glucose 177 H Calcium 8.4 L Diagnostic Findings Lumbar Spine X-Ray 08/31/22 13:05 FL lumbar spine 2-3V CLINICAL HISTORY: L3-4 DFI/L4-5 HR COMPARISON STUDY: Lumbar spine radiographs January 21, 2022 and lumbar spine MRI December 14, 2021. FLUOROSCOPY TIME: 11 seconds. EXPOSURE DOSE: 9.24 mGy FLUOROSCOPIC IMAGES: 2 FINDINGS: Previous L4-L5 and L5-S1 discectomies are noted. Previous hardware was removed. Interval L3-L4 discectomy with interbody spacer placement is noted. The re is a posterior decompression with bilateral pedicle screw fusion from L3 through L5. IMPRESSION: Interval L3-L4 discectomy and L3-L5 bilateral pedicle screw fusion. ACT 112: Negative or not required by law. Electronically signed by: Rigo Thomas M.D. 08/31/2022 4:59 PM
== END 2022-09-02 12:04 | disposition home or self-care (01) | DRG 454 ==
LOC: ASU 11:29 → PACUINP 16:22 → 3E 19:07